=== PATIENT | female | born 1980 | race Caucasian/White ===

== ENCOUNTER → 2017-06-20 | Outpatient (CLI) | payer OTHER ==
[~2017-06-20] MED LIST: ACETAMINOPHEN PO; ADIPEX-P37.5 M1 PO; ALEVE220 M1 PO; ALPRAZOLAM PO; ANEXSIA 7.5/3251 TA1 PO; ANTIVERT PO; BACTRIM DS TABL1 TA1; BENTYL10 MG PO; BENTYL20 MG DOB; BENTYL20 MG PO; CELEXA PO; CLARITIN10 M1 PO; CLARITIN10 M2 PO; CLARITIN10 MG PO; CLEOCIN HCL300 M1 PO; DEXELENT PO; DEXILANT PO; DEXILANT30 MG PO; FIORICET 50-321 EACH PO; FLAGYL PO; FLEXERIL PO; FLONASE 0.05% N16 GM; HYDROCODONE-A1 UDTA4 PO; IBUPROFEN PO; IBUPROFEN600 MG PO; IBUPROFEN800 MG PO; LEVAQUIN PO; LEVAQUIN750 MG PO; LORTAB 7.5-5001 TAB PO; METOPROLOL-HCTZ1 TA3 PO; MOTRIN PO; MOTRIN400 M1 PO; MOTRIN400 MG PO; MULTI-DAY VITAM1 TAB; NAPROXEN PO; NEURONTIN300 MG PO; NEURONTIN600 MG PO; PHENERGAN PO; PHENERGAN25 M1 PO; PHENERGAN25 MG PO; PREVACID SOLUTA30 MG PO; TOPAMAX PO; TYLOX 5-500 CA1 EACH PO; VALTREX PO; VALTREX500 MG; VALTREX500 MG PO; VIBRAMYCIN100 M1 PO; XANAX0.5 M1 PO; XANAX0.5 MG PO; ZANAFLEX PO; ZANAFLEX4 M1 PO; ZOFRAN ODT4 MG PO; ZOFRAN PO; ZOLOFT50 MG PO; ZYRTEC10 M4 PO; [UNRECOGNIZED DRUG - OTHER] INJ
--- NOTE | ~2017-06-20 | MY26 ---
[facility] A Service of [facility] & [facility] RADIOLOGY TEXT RESULTS PATIENT: DAYANARA LEWIS LOCATION: [facility] : [birth year] UNIT #: [id number] AGE: [address]: Barry Martin MD SEX: F ORDER DR: [id number] [facility] [address] [place], [place] [address] [id number] O MR#: [id number] Acc #: [id number] NAME: DAYANARA LEWIS : 1980 SEX: F STUDY DATE/TIME: 06/20/2017 14:54 UNIT: [facility] ROOM: STUDY DESCRIPTION: MY [facility] DIAGNOSTIC W/ CAD BILAT Attending Physician: Barry Martin M.D. Referring Physician: Kristel Molina Aprn Ordering Physician: Barry Martin M.D. Primary Care Physician: Barry Martin M.D. MEDICAL IMAGING REPORT This report is preliminary unless electronic signature is present EXAM Diagnostic mammogram, 06/20 INDICATIONS 37-year-old with positive family of breast cancer in her grandmother. She reports bilateral palpable abnormalities in the breasts. FINDINGS Digital CC, MLO, and ML views of both breasts were obtained. Spot compression right CC and MLO views were obtained as well. Study is reviewed with an FDA-approved CAD device. Comparison is made with 09/10/2014 and 08/23/2011. Breast parenchyma shows scattered fibroglandular densities. No suspicious microcalcifications in either breast. In the deep upper outer right breast, there is a circumscribed 8 mm nodule. This is faintly visible on the 2013 exam. Ultrasound was subsequently performed in the upper outer right breast and the area of palpable concern in the left breast. On the left side, ultrasound demonstrates normal fibroglandular breast tissue around the 11 o'clock axis. On the right side, there is a minimally complicated cyst in the deep breast at the 9 o'clock position. It measures about 6 mm in greatest dimension and appears to correspond to the mammographic nodule. Also on the right, there is a subcutaneous lipoma at the 10 o'clock position about 12 cm from the nipple. It measures up to about 8 mm in greatest dimension. Findings were discussed with the patient at the time of her examination today. IMPRESSION Benign bilateral mammogram with benign bilateral targeted breast STS. [facility] A Service of [facility] & [facility] RADIOLOGY TEXT RESULTS PATIENT: DAYANARA LEWIS LOCATION: [facility] : [birth year] UNIT #: [id number] AGE: [address]: Barry Martin MD SEX: F ORDER DR: ultrasound. Continued clinical followup of any palpable abnormality recommended at this time. Otherwise, routine yearly screening recommended beginning at age 40 or soon clinically indicated. Patients over the age of 40 are entered into a reminder system with target due date for the next mammogram. A result letter will also be sent to the patient. BIRADS: 2 Benign Finding Dictated by... Josue Pitt Jr., M.D. THIS IS AN ELECTRONICALLY VERIFIED REPORT Josue Pitt Jr., M.D. at 06/21/2017 4:39 PM ALEXY/roberth TD: 06/21/2017 08:21 JOB #: [id number] MEDICAL IMAGING REPORT Page 1 of 1 COPY
--- NOTE | ~2017-06-20 | US17 ---
[facility] A Service of [facility] & [facility] RADIOLOGY TEXT RESULTS PATIENT: DAYANARA LEWIS LOCATION: [facility] : 80 UNIT #: [id number] AGE: [address]: Barry Martin MD SEX: F ORDER DR: [id number] [facility] [address] [place], [place] [address] [id number] O MR#: [id number] Acc #: [id number] NAME: DAYANARA LEWIS : 1980 SEX: F STUDY DATE/TIME: 06/20/2017 15:30 UNIT: [facility] ROOM: STUDY DESCRIPTION: US Breast Bilateral Attending Physician: Barry Martin M.D. Referring Physician: Kristel Molina Aprn Ordering Physician: Barry Martin M.D. Primary Care Physician: Barry Martin M.D. MEDICAL IMAGING REPORT This report is preliminary unless electronic signature is present EXAM Bilateral breast ultrasound, 06/20 INDICATION Bilateral breast palpable abnormalities. FINDINGS For a full report, please see the mammogram report dated 06/20/2017. Patients over the age of 40 are entered into a reminder system with target due date for the next mammogram. A result letter will also be sent to the patient. BIRADS: 2 Benign Finding Dictated by... Josue Pitt Jr., M.D. THIS IS AN ELECTRONICALLY VERIFIED REPORT Josue Pitt Jr., M.D. at 06/21/2017 4:38 PM Linda TD: 06/21/2017 08:26 JOB #: [id number] MEDICAL IMAGING REPORT Page 1 of 1 COPY
== END | disposition home or self-care (01) ==
LOC: CWCC 06-10 14:00
DX: N63 Unspecified lump in breast (principal); N64.4 Mastodynia; Z80.3 Family history of malignant neoplasm of breast
CPT/HCPCS: 76641; G0204